=== PATIENT | female | born 1990 | race American Indian/Alaskan Native ===

== ENCOUNTER 2016-07-19 23:18 | Emergency (ER) | payer OTHER ==
[2016-07-19 23:30] VITALS: BP 137/93; RESP 16; TEMP 98.2; O2SAT 98
[2016-07-20 00:04] VITALS: PULSE 112
--- NOTE | 2016-07-20 00:40 | C.PDOC ---
History Of Present Illness 26 year old patient presents to the ED complaining of right 5th finger pain that began prior to arrival. Patient states the pain started after a heavy security door slammed onto her finger. Patient is a poor historian. She states she "wants a finger splint." Patient denies any numbness or weakness. Time Seen by Provider: 07/20/16 00:32 Chief Complaint (Nursing): Finger,Hand,&Wrist History Per: Patient History/Exam Limitations: no limitations Onset/Duration Of Symptoms: Mins (prior to arrival) Current Symptoms Are (Timing): Still Present Quality: "Pain" Severity: Mild Pain Scale Rating Of: 3 Exacerbating Factor(s): Movement Recent travel outside of the [place]: No Past Medical History Reviewed: Historical Data, Nursing Documentation, Vital Signs Vital Signs: Last Vital Signs Temp 98.2 F 07/19/16 23:27 Pulse 112 H 07/20/16 00:03 Resp 16 07/19/16 23:27 BP 137/93 H 07/19/16 23:27 Pulse Ox 98 07/20/16 02:08 - Medical History PMH: Bronchitis Family History: States: Unknown Family Hx - Social History Hx Alcohol Use: Yes Hx Substance Use: No - Immunization History Hx Tetanus Toxoid Vaccination: No Hx Influenza Vaccination: No Hx Pneumococcal Vaccination: No Review Of Systems Except As Marked, All Systems Reviewed And Found Negative. Musculoskeletal: Positive for: Hand Pain (right 5th finger) Neurological: Negative for: Weakness, Numbness Physical Exam - Physical Exam Appears: Non-toxic, No Acute Distress Skin: Warm, Dry Cardiovascular: Rhythm Regular Respiratory: Normal Breath Sounds, No Rales, No Rhonchi, No Wheezing Extremity: Normal ROM, Capillary Refill (<2 seconds), No Deformity, No Swelling , Other (right 5th finger: PIP at flexion. full ROM. no swelling. no ecchymosis. good strength and sensation. normal pulse. no subungal hematoma. no laceration. right forearm and hand are within normal limits. ) Neurological/Psych: Oriented x3, Normal Motor, Normal Sensation Gait: Steady ED Course And Treatment O2 Sat by Pulse Oximetry: 98 (room air) Pulse Ox Interpretation: Normal Progress Note: Plan: Motrin. Patient refuses x-ray. Aluminum splint was applied by the ED CP. Upon reassessment, patient is resting comfortably, and is in no acute distress. Patient was instructed to follow up with physician/ clinic for further evaluation. Return if symptoms worsen. Disposition Counseled Patient/Family Regarding: Diagnosis, Need For Followup, Rx Given - Disposition Disposition: HOME/ ROUTINE Disposition Time: 00:38 Condition: STABLE Additional Instructions: Please follow up with PMD or in clinic Take tylenol or advil for pain Return to ER if worse Prescriptions: Ibuprofen [Motrin] 600 mg PO Q6H #20 tab Instructions: Jammed Finger (ED) - Clinical Impression Clinical Impression: Finger injury, Finger contusion - PA / TOMOGRAPHIC TECH / Resident Statement MD/DO has reviewed & agrees with the documentation as recorded. - Scribe Statement The provider has reviewed the documentation as recorded by the Scribe Ene Finney All medical record entries made by the Scribe were at my direction and personally dictated by me. I have reviewed the chart and agree that the record accurately reflects my personal performance of the history, physical exam, medical decision making, and the department course for this patient. I have also personally directed, reviewed, and agree with the discharge instructions and disposition.
--- NOTE | 2016-08-21 10:47 | CARD ---
APPROVED REPORT EKG Measurement Heart [id number] <Conclusion> Sinus tachycardia Possible Left atrial enlargement Borderline ECG
== END 2016-07-20 01:00 | disposition home or self-care (01) ==
LOC: C.ER 23:18
DX: S60.051A Contusion of right little finger without damage to nail, initial encounter (principal); W22.8XXA Striking against or struck by other objects, initial encounter; Y93.9 Activity, unspecified; Y92.89 Other specified places as the place of occurrence of the external cause

== ENCOUNTER 2017-01-22 14:03 | Inpatient (IN) | payer MEDICAID, OTHER ==
[2017-01-22 15:11] LABS: RBC URINE 4 /hpf (0-3); URINE BILIRUBIN NEGATIVE (NEGATIVE); URINE BLOOD 2+ (NEGATIVE); URINE COLOR Yellow (YELLOW); URINE GLUCOSE (UA) NORMAL (Normal); URINE KETONE 1+ mg/dL (NEGATIVE); URINE LEUKOCYTE ESTERASE TRACE Leu/uL (Negative); URINE PROTEIN 2+ mg/dL (NEGATIVE); URINE UROBILINOGEN NORMAL mg/dL (0.2-1.0); WBC URINE 4 /hpf (0-5)
[2017-01-22 15:18] LABS: URINE BACTERIA FEW (<OCC)
--- NOTE | 2017-01-22 15:37 | RAD ---
Abdomen three views History: Constipation. Comparison: None available. Findings: Few mildly dilated loops of small bowel seen within the upper mid abdomen with a suggestion of questionable differential fluid levels which may represent a partial or developing small bowel obstruction. Some air seen within the visualized colon. Lung zabala are clear. Impression: Few mildly dilated loops of small bowel seen within the upper mid abdomen with a suggestion of questionable differential fluid levels which may represent a partial or developing small bowel obstruction. Clinical correlation. Some air seen within the visualized colon.
--- NOTE | 2017-01-22 15:54 | C.PDOC ---
History Of Present Illness <Shelley Francis - Last Filed: 01/22/17 18:51> <Marvin Banuelos - Last Filed: 01/22/17 20:06> 26 yo female w/o significant PMHx come in for evaluation of epigastric pain gradually developed for past few days, intermittent, localized, non-radiating. Pt also reports, (+) constipation for past 4 days. Took laxative yesterday with (+) BM, "today did not have BM again". Otherwise, pt denies fever, chills, headache, dizziness, weakness, neck apin, CP, SOB, dyspnea, diaphoresis, N/V, back pain, UTI sx. Ambulate to ED for evaluation, not in any apparent distress. (Shelley Francis) History Per: Patient <Shelley Francis - Last Filed: 01/22/17 18:51> <Marvin Banuelos P - Last Filed: 01/22/17 20:06> Time Seen by Provider: 01/22/17 14:22 Chief Complaint (Nursing): GI Problem Past Medical History Reviewed: Historical Data, Nursing Documentation, Vital Signs - Medical History PMH: Bronchitis Surgical History: No Surg Hx Family History: States: No Known Family Hx - Social History Hx Alcohol Use: Yes Hx Substance Use: No - Immunization History Hx Tetanus Toxoid Vaccination: No Hx Influenza Vaccination: No Hx Pneumococcal Vaccination: No <Shelley Francis - Last Filed: 01/22/17 18:51> Vital Signs: Last Vital Signs Temp 99.3 F 01/22/17 18:28 Pulse 117 H 01/22/17 18:28 Resp 18 01/22/17 18:28 BP 143/100 H 01/22/17 18:28 Pulse Ox 99 01/22/17 18:55 Review Of Systems Except As Marked, All Systems Reviewed And Found Negative. Constitutional: Negative for: Fever, Chills ENT: Negative for: Throat Pain Cardiovascular: Negative for: Chest Pain, Palpitations Respiratory: Negative for: Cough, Shortness of Breath Gastrointestinal: Positive for: Abdominal Pain, Constipation. Negative for: Nausea, Vomiting, Melena, Hematochezia, Hematemesis, Rectal Pain Genitourinary: Negative for: Dysuria, Frequency, Incontinence Musculoskeletal: Negative for: Neck Pain, Back Pain Skin: Negative for: Rash Neurological: Negative for: Weakness, Numbness, Altered Mental Status, Headache , Dizziness <MichellejanetShelley - Last Filed: 01/22/17 18:51> Physical Exam - Physical Exam Appears: Well, Non-toxic, No Acute Distress Skin: Normal Color, Warm, Dry, No Rash Head: Normacephalic Eye(s): bilateral: PERRL Nose: No Flaring, No Discharge Oral Mucosa: Moist Throat: No Erythema, No Exudate, No Drooling Neck: Supple Cardiovascular: Rhythm Regular Respiratory: No Decreased Breath Sounds, No Accessory Muscle Use, No Rhonchi, No Wheezing Gastrointestinal/Abdominal: Soft, Tenderness (mild epigastric), No Organomegaly , No Distention, No Guarding Back: No CVA Tenderness Extremity: Normal ROM, No Pedal Edema, No Deformity, No Swelling Neurological/Psych: Oriented x3, Normal Speech <DallinMadison ibrahimnika - Last Filed: 01/22/17 18:51> ED Course And Treatment - Laboratory Results Result Diagrams: 01/22/17 16:46 01/22/17 17:01 Lab Interpretation: Abnormal O2 Sat by Pulse Oximetry: 99 (RA) Pulse Ox Interpretation: Normal - Other Rad X-Ray - Obstructive Series X-Ray: Viewed By Me, Read By Radiologist Interpretation: Abdomen three views. History: Constipation. Comparison: None available. Findings: Few mildly dilated loops of small bowel seen within the upper mid abdomen with a suggestion of questionable differential fluid levels which may represent a partial or developing small bowel obstruction. Some air seen within the visualized colon. Lung zabala are clear. Impression: Few mildly dilated loops of small bowel seen within the upper mid abdomen with a suggestion of questionable differential fluid levels which may represent a partial or developing small bowel obstruction. Clinical correlation. Some air seen within the visualized colon. - CT Scan/US CT - Abd & Pelvis w/ PO Contrast Other Rad Studies (CT/US): Read By Radiologist, Radiology Report Reviewed Progress Note: Pt was OBS in ED for 4 hours and remained stable during the ED evaluation. After enema was given, pt admits was able to move bowel in ED. Imaging results review and discussed with ED attending. CT abd/plevis recommend at that time. AFebrile, hemodynamicaly stable. Non-toxic. Neck: SUpple. Lungs: CTA B/L, BS equal B/L. CVS: (+)S1S2, reg. Abd: benign, (-) guarding, (-) rebound, (-) localized tenderness. Back: (-) CVA tenderness. Neurologicaly intact. Blood work review and appears abnormal. CT abd/pelvis- pending. Case discussed with sign out to . <Shelley Francis - Last Filed: 01/22/17 18:51> - Laboratory Results Result Diagrams: 01/22/17 16:46 01/22/17 17:01 <Marvin Banuelos - Last Filed: 01/22/17 20:06> Medical Decision Making <Shelley Francis - Last Filed: 01/22/17 18:51> <Marvin Banuelos - Last Filed: 01/22/17 20:06> Medical Decision Makin disc results w pt who is resting quietly no distress. will admit for pancreatitis disc w Dr Pascual (Marvin Banuelos) Disposition - Disposition Disposition Time: 18:54 <Shelley Francis - Last Filed: 01/22/17 18:51> <Marvin Banuelos - Last Filed: 01/22/17 20:06> - Disposition Condition: STABLE Forms: [facility] (German) - Clinical Impression Clinical Impression: Abdominal pain, Elevated lipase Physician Patient Turnover Patient Signed Over To: Marvin Banuelos Handoff Comments: CT abd/pelvis, amylase, re-eval, dispo <Shelley Francis - Last Filed: 01/22/17 18:51>
[2017-01-22] MEDS ORDERED: Iohexol 240 (50 ml) ONE (16:25)
[2017-01-22 17:01] LABS: BASO % 0.3 % (0.0-2.0); EOS # 0.2 K/uL (0.0-0.7); EOS % 1.8 % (0.0-4.0); HEMATOCRIT 42.8 % (34.0-47.0); LYMPH # 0.8 K/uL (1.0-4.3); LYMPH % 9.2 % (20.0-40.0); MEAN CELL VOLUME 100.5 fL (81.0-99.0); MEAN CORPUSCULAR HEMOGLOBIN 34.1 pg (27.0-31.0); MEAN PLATELET VOLUME 8.1 fL (7.2-11.7); MONO # 0.5 K/uL (0.0-0.8); MONO % 5.2 % (0.0-10.0); PLATELET COUNT 140 K/uL (130-400); WHITE BLOOD COUNT 9.1 K/uL (4.8-10.8)
[2017-01-22 17:21] LABS: BILIRUBIN,TOTAL 1.8 mg/dL (0.2-1.3); CALCIUM 9.1 mg/dl (8.6-10.4); GFR AFRICAN-AMERICAN > 60; GLUCOSE,RANDOM 91 mg/dL (65-105)
[2017-01-22 17:26] LABS: ALB/GLOB RATIO 1.3 (1.0-2.1); ALKALINE PHOSPHATASE 89 U/L (38-126); ALT/SGPT 56 U/L (9-52); AST/SGOT 62 U/L (14-36); BLOOD UREA NITROGEN 6 mg/dL (7-17); CARBON DIOXIDE 26 mmol/L (22-30); CHLORIDE 95 mmol/L (98-107); SODIUM 133 mmol/L (132-148); TOTAL PROTEIN 8.7 g/dL (6.3-8.3)
[2017-01-22 18:50] LABS: NEUTROPHIL 84 % (50-75); TOTAL CELLS COUNTED 100
[2017-01-22 18:51] LABS: LARGE PLATELETS PRESENT
--- NOTE | 2017-01-22 19:01 | CT ---
EXAM: CT Abdomen and Pelvis With Intravenous Contrast EXAM DATE/TIME: Exam ordered 01/22/2017 5:07 PM CLINICAL HISTORY: 26 years old, female; Pain; Abdominal pain; Additional info: Abd. Pain, constipation, abnoraml xray findings TECHNIQUE: Axial computed tomography images of the abdomen and pelvis with intravenous contrast. All CT scans at this facility use one or more dose reduction techniques, viz.: automated exposure control; ma/kV adjustment per patient size (including targeted exams where dose is matched to indication; i.e. head); or iterative reconstruction technique. Coronal and sagittal reformatted images were created and reviewed. CONTRAST: 240 mL of 240 administered intravenously. COMPARISON: No relevant prior studies available. FINDINGS: Lower thorax: A contrast air level in the distal esophagus suggests gastroesophageal reflux. ABDOMEN: Liver: The liver is low in density. Gallbladder and bile ducts: Unremarkable. No calcified stones. No ductal dilation. Pancreas: Unremarkable. No mass. No ductal dilation. Spleen: Unremarkable. No splenomegaly. Adrenals: Unremarkable. No mass. Kidneys and ureters: Unremarkable. No solid mass. No hydronephrosis. Stomach and bowel: No abnormally dilated bowel loops are seen.. No mucosal thickening. Appendix: No findings to suggest acute appendicitis. PELVIS: Bladder: Unremarkable. No mass. Reproductive: Unremarkable as visualized. ABDOMEN and PELVIS: Intraperitoneal space: Unremarkable. No free air. No significant fluid collection. Bones/joints: No acute fracture. No dislocation. Soft tissues: Mild inflammatory changes are noted within the fat adjacent to the pancreatic head and second portion of the duodenum. Vasculature: Unremarkable. No abdominal aortic aneurysm. Lymph nodes: Unremarkable. No enlarged lymph nodes. IMPRESSION: 1. Mild inflammatory changes are noted within the fat surrounding the second portion of the duodenum and the adjacent pancreatic head. Differential diagnostic considerations include pancreatitis. Duodenitis with penetrating ulcer and secondary pancreatitis might also be considered. 2. Hepatic steatosis. 3. Contrast air level in the distal esophagus suggests gastroesophageal reflux. 4. No abnormally dilated small bowel loops to suggest obstruction or ileus.
--- NOTE | 2017-01-22 20:04 | US ---
EXAM: US Abdomen Limited, Right Upper Quadrant EXAM DATE/TIME: Exam ordered 01/22/2017 7:03 PM CLINICAL HISTORY: 26 years old, female; Signs and symptoms; Other: Evaluate for common duct stone; Additional info: Eval for common duct stone TECHNIQUE: Real-time ultrasound of the right upper quadrant with image documentation. COMPARISON: CT - ABD PELVIS PO CONTRAST ONLY 2017-01-22 18:07 FINDINGS: Liver: The liver is mildly increased in echotexture measuring 16 cm in craniocaudal span. There is normal blood flow to right and the main portal vein. Normal triphasic flow is noted in the right hepatic vein. Gallbladder: The gallbladder is fluid filled. No gallstones are seen. Common bile duct: The common bile duct measures 5 mm. No stones. No dilation. Pancreas: Not well-seen due to bowel gas Right kidney: The right kidney measures 11.2 x 4.4 x 5.1 cm. No stones. No hydronephrosis. Aorta: There is no evidence of proximal abdominal aortic aneurysm. The mid and distal aorta are not seen due to bowel gas. IMPRESSION: 1. No ductal dilatation. No gallstones. 2. Echogenic liver suggests hepatic steatosis
[2017-01-22] MEDS ORDERED: Sodium Chloride 0.9% 1,000 ML IV SCH (20:15)
[2017-01-22] MEDS ORDERED: Sodium Chloride 0.9% 1,000 ML ONE (20:21)
[2017-01-23 00:12] VITALS: RESP 20
[2017-01-23] MEDS: Lactated Ringer's 1,000 ML IV SCH ×4 (08:38→23:04)
[2017-01-23 08:40] LABS: AMYLASE 88 U/L (30-110)
[2017-01-23] MEDS: HYDROmorphone 0.5 mg/0.5 ml ISec IVP PRN ×3 (09:06→22:59)
--- NOTE | 2017-01-23 11:31 | CP.PCM.CON ---
<Rosa Dempsey - Last Filed: 01/23/17 11:38> History of Present Illness - History of Present Illness History of Present Illness: GI Fellow PGY4 Consult Note This is a 26yF with no reported pmhx presenting for acute epigastric abdominal pain radiating to back associated with nausea and vomiting for 2 days. Pt reports she was experiencing sharp stabbing pain and did not notice any triggers and not associated with food. Pt reports she had the same type of pain for the first time 2weeks which was much more severe but resolved on its own with OTC pain medication. Pt denies any hx of gallbladder pathology or elevated cholesterol. Pt does drink 1 bottle of wine every day since September 2016. In the ER pt was found to have elevated LFTs and concern for pancreatitis on imaging. No prior hx of pancreatitis. Pt denies any prior EGD/colonoscopy. ROS: A 12pt ROS was negative except as above. PmHx: None PsHX: None FHx: No family hx of pancreatic disease SHx: smokes cigarets, alcohol 1 bottle of wine daily for 5 months Past Patient History - Infectious Disease Hx of Infectious Diseases: None - Past Medical History & Family History Past Medical History?: Yes - Past Social History Smoking Status: Never Smoked - PULMONARY Hx Bronchitis: Yes - HEMATOLOGICAL/ONCOLOGICAL Hx Blood Transfusions: Yes (x2) - MUSCULOSKELETAL/RHEUMATOLOGICAL Hx Falls: No - PSYCHIATRIC Hx Substance Use: No - SURGICAL HISTORY Hx Surgeries: No - ANESTHESIA Hx Anesthesia: No Meds Allergies/Adverse Reactions: Allergies Allergy/AdvReac Type Severity Reaction Status Date / Time Penicillins Allergy Verified 01/22/17 14:05 shellfish derived Allergy Verified 01/22/17 14:05 - Medications Medications: Current Medications Enoxaparin Sodium (Lovenox) 40 mg SC DAILY [facility] Hydromorphone HCl (Dilaudid) 0.25 mg IVP Q4H PRN PRN Reason: Pain, Mild (1-3) Last Admin: 01/23/17 09:06 Dose: 0.25 mg Lactated Ringer's (Lactated Ringer's) 1,000 mls @ 200 mls/hr IV .Q5H RILEY Last Admin: 01/23/17 08:38 Dose: 200 mls/hr Pantoprazole Sodium (Protonix Inj) 40 mg IVP DAILY [facility] Last Admin: 01/23/17 09:06 Dose: 40 mg Pneumococcal Polyvalent Vaccine (Pneumovax 23 Vaccine) 0.5 ml IM .ONCE ONE Stop: 01/24/17 10:01 Physical Exam - Constitutional Appears: Non-toxic, No Acute Distress - Head Exam Head Exam: ATRAUMATIC, NORMAL INSPECTION, NORMOCEPHALIC - Eye Exam Eye Exam: EOMI, Normal appearance, PERRL Pupil Exam: NORMAL ACCOMODATION, PERRL - ENT Exam ENT Exam: Mucous Membranes Moist, Normal Exam - Neck Exam Neck exam: Positive for: Normal Inspection - Respiratory Exam Respiratory Exam: Clear to Auscultation Bilateral, NORMAL BREATHING PATTERN - Cardiovascular Exam Cardiovascular Exam: REGULAR RHYTHM - GI/Abdominal Exam GI & Abdominal Exam: Normal Bowel Sounds, Tenderness. absent: Distended, Guarding, Organomegaly, Rigid - Rectal Exam Rectal Exam: Deferred - Extremities Exam Extremities exam: Positive for: normal inspection - Back Exam Back exam: NORMAL INSPECTION - Neurological Exam Neurological exam: Alert, Oriented x3 - Psychiatric Exam Psychiatric exam: Normal Affect, Normal Mood - Skin Skin Exam: Dry, Intact, Normal Color, Warm Results - Vital Signs Recent Vital Signs: Last Vital Signs Temp 98.6 F 01/23/17 00:11 Pulse 101 H 01/23/17 00:11 Resp 20 01/23/17 00:11 BP 140/89 01/23/17 00:11 Pulse Ox 97 01/23/17 00:11 - Labs Result Diagrams: 01/22/17 16:46 01/22/17 17:01 Labs: Laboratory Results - last 24 hr 01/22/17 01/22/17 01/22/17 14:59 16:46 17:01 WBC 9.1 RBC 4.26 Hgb 14.6 Hct 42.8 MCV 100.5 H MCH 34.1 H MCHC 34.0 RDW 16.0 H Plt Count 140 MPV 8.1 Neut % (Auto) 83.5 H Lymph % (Auto) 9.2 L Canadian % (Auto) 5.2 Eos % (Auto) 1.8 Baso % (Auto) 0.3 Neut # 7.6 H Lymph # 0.8 L Canadian # 0.5 Eos # 0.2 Baso # 0.0 Neutrophils % (Manual) 84 H Lymphocytes % (Manual) 13 L Monocytes % (Manual) 3 Platelet Estimate Slightly decreased L Large Platelets Present Sodium 133 Potassium 4.0 Chloride 95 L Carbon Dioxide 26 Anion Gap 17 BUN 6 L Creatinine 0.5 L Est GFR ( Amer) > 60 Est GFR (Non-Af Amer) > 60 Random Glucose 91 Calcium 9.1 Total Bilirubin 1.8 H AST 62 H ALT 56 H Alkaline Phosphatase 89 Total Protein 8.7 H Albumin 4.9 Globulin 3.8 Albumin/Globulin Ratio 1.3 Amylase Lipase 507 H Urine Color Yellow Urine Clarity Hazy Urine pH 5.0 Ur Specific Weott 1.020 Urine Protein 2+ H Urine Glucose (UA) Normal Urine Ketones 1+ H Urine Blood 2+ H Urine Nitrate Negative Urine Bilirubin Negative Urine Urobilinogen Normal Ur Leukocyte Esterase Trace Urine WBC (Auto) 4 Urine RBC (Auto) 4 H Ur Squamous Epith Cells 11 H Urine Bacteria Few H Urine HCG, Qual Negative 01/22/17 01/23/17 18:19 08:23 WBC RBC Hgb Hct MCV MCH MCHC RDW Plt Count MPV Neut % (Auto) Lymph % (Auto) Canadian % (Auto) Eos % (Auto) Baso % (Auto) Neut # Lymph # Canadian # Eos # Baso # Neutrophils % (Manual) Lymphocytes % (Manual) Monocytes % (Manual) Platelet Estimate Large Platelets Sodium Potassium Chloride Carbon Dioxide Anion Gap BUN Creatinine Est GFR ( Amer) Est GFR (Non-Af Amer) Random Glucose Calcium Total Bilirubin AST ALT Alkaline Phosphatase Total Protein Albumin Globulin Albumin/Globulin Ratio Amylase 99 88 Lipase 589 H Urine Color Urine Clarity Urine pH Ur Specific Weott Urine Protein Urine Glucose (UA) Urine Ketones Urine Blood Urine Nitrate Urine Bilirubin Urine Urobilinogen Ur Leukocyte Esterase Urine WBC (Auto) Urine RBC (Auto) Ur Squamous Epith Cells Urine Bacteria Urine HCG, Qual Assessment & Plan - Assessment and Plan (Free Text) Assessment: This is a 26yF presenting with acute onset of epigastric pain radiating to back associated with nausea and vomiting. 1. Alcoholic pancreatitis 2. GERD 3. Transamintis Plan: -Continue supportive care with aggressive IVF hydration LR@200cc/hr -Monitor BUN/Hct, CMP/CBC ordered for am -Pancreatitis likely from alcohol use with elevated LFTs, imaging negative for gallstones, will order lipid profile -Diagnosed based on 2/3 criteria-abdominal pain and imaging with mild fat stranding around pancreas, lipase is not 3x upper limit of normal -Advance to clear liquid diet -Conitnue PPI daily 30minutes prior to breakfast for possible underlying GERD vs PUD causing her symptoms -Continue pain control and antiemetic -Will continue to follow pt closely <Shad Motta - Last Filed: 01/23/17 12:05> Meds - Medications Medications: Current Medications Enoxaparin Sodium (Lovenox) 40 mg SC DAILY [facility] Hydromorphone HCl (Dilaudid) 0.25 mg IVP Q4H PRN PRN Reason: Pain, Mild (1-3) Last Admin: 01/23/17 09:06 Dose: 0.25 mg Lactated Ringer's (Lactated Ringer's) 1,000 mls @ 200 mls/hr IV .Q5H RILEY Last Admin: 01/23/17 08:38 Dose: 200 mls/hr Pantoprazole Sodium (Protonix Inj) 40 mg IVP DAILY [facility] Last Admin: 01/23/17 09:06 Dose: 40 mg Pneumococcal Polyvalent Vaccine (Pneumovax 23 Vaccine) 0.5 ml IM .ONCE ONE Stop: 01/24/17 10:01 Results - Vital Signs Recent Vital Signs: Last Vital Signs Temp 98.6 F 01/23/17 00:11 Pulse 101 H 01/23/17 00:11 Resp 20 01/23/17 00:11 BP 140/89 01/23/17 00:11 Pulse Ox 97 01/23/17 00:11 - Labs Result Diagrams: 01/22/17 16:46 01/22/17 17:01 Labs: Laboratory Results - last 24 hr 01/22/17 01/22/17 01/22/17 14:59 16:46 17:01 WBC 9.1 RBC 4.26 Hgb 14.6 Hct 42.8 MCV 100.5 H MCH 34.1 H MCHC 34.0 RDW 16.0 H Plt Count 140 MPV 8.1 Neut % (Auto) 83.5 H Lymph % (Auto) 9.2 L Canadian % (Auto) 5.2 Eos % (Auto) 1.8 Baso % (Auto) 0.3 Neut # 7.6 H Lymph # 0.8 L Canadian # 0.5 Eos # 0.2 Baso # 0.0 Neutrophils % (Manual) 84 H Lymphocytes % (Manual) 13 L Monocytes % (Manual) 3 Platelet Estimate Slightly decreased L Large Platelets Present Sodium 133 Potassium 4.0 Chloride 95 L Carbon Dioxide 26 Anion Gap 17 BUN 6 L Creatinine 0.5 L Est GFR ( Amer) > 60 Est GFR (Non-Af Amer) > 60 Random Glucose 91 Calcium 9.1 Total Bilirubin 1.8 H AST 62 H ALT 56 H Alkaline Phosphatase 89 Total Protein 8.7 H Albumin 4.9 Globulin 3.8 Albumin/Globulin Ratio 1.3 Amylase Lipase 507 H Urine Color Yellow Urine Clarity Hazy Urine pH 5.0 Ur Specific Weott 1.020 Urine Protein 2+ H Urine Glucose (UA) Normal Urine Ketones 1+ H Urine Blood 2+ H Urine Nitrate Negative Urine Bilirubin Negative Urine Urobilinogen Normal Ur Leukocyte Esterase Trace Urine WBC (Auto) 4 Urine RBC (Auto) 4 H Ur Squamous Epith Cells 11 H Urine Bacteria Few H Urine HCG, Qual Negative 01/22/17 01/23/17 18:19 08:23 WBC RBC Hgb Hct MCV MCH MCHC RDW Plt Count MPV Neut % (Auto) Lymph % (Auto) Canadian % (Auto) Eos % (Auto) Baso % (Auto) Neut # Lymph # Canadian # Eos # Baso # Neutrophils % (Manual) Lymphocytes % (Manual) Monocytes % (Manual) Platelet Estimate Large Platelets Sodium Potassium Chloride Carbon Dioxide Anion Gap BUN Creatinine Est GFR ( Amer) Est GFR (Non-Af Amer) Random Glucose Calcium Total Bilirubin AST ALT Alkaline Phosphatase Total Protein Albumin Globulin Albumin/Globulin Ratio Amylase 99 88 Lipase 589 H Urine Color Urine Clarity Urine pH Ur Specific Weott Urine Protein Urine Glucose (UA) Urine Ketones Urine Blood Urine Nitrate Urine Bilirubin Urine Urobilinogen Ur Leukocyte Esterase Urine WBC (Auto) Urine RBC (Auto) Ur Squamous Epith Cells Urine Bacteria Urine HCG, Qual Attending/Attestation - Attestation I have personally seen and examined this patient.: Yes I have fully participated in the care of the patient.: Yes I have reviewed all pertinent clinical information: Yes Notes (Text): 01/23/17 12:02 26 year old female with recent onset of etoh abuse presenting with abdominal pain. 1. Acute pancreatitis 2. Elevated LFTs 4. Fatty liver Plan: -lipase only mildly elevated, but pain really started about two weeks ago and she didn't get evaluated at that time and CT has evidence of pancreatitis -advised patient that etoh may be causing both pancreatitis and elevated LFTs -she has fatty liver on US -check hepatitis serologies -IV hydration -liquid diet and advance as tolerated -start PPI as well for possible gerd/dyspepsia
[2017-01-23] MEDS: Enoxaparin 40 mg Syringe SC SCH (13:40)
--- NOTE | 2017-01-23 23:09 | HP ---
CHIEF COMPLAINT: Epigastric pain. HISTORY OF PRESENT ILLNESS: Ms. Smith is a 26-year-old female without any significant past medical history came for evaluation of epigastric pain gradually developed for the past two days, intermittent, localized, and nonradiating. The patient reports positive constipation for four days, took laxative yesterday and had bowel movement. Today, did not have bowel movement. Otherwise, the patient denies fever, chills, headache, dizziness, weakness, neck pain, chest pain, shortness of breath, dyspnea, or diaphoresis. No nausea or vomiting. No back pain. PAST MEDICAL HISTORY: History of alcohol abuse. Otherwise, nonsignificant. FAMILY HISTORY: Father and mother, noncontributory. HABITS: Alcohol, yes. Substance abuse, no. Smoking, questionable. REVIEW OF SYSTEMS: The patient seen and examined at the bedside. Grandmother, father, and boyfriend were at the bedside. Looking comfortable. Still complaining about abdominal pain before getting pain medication, but after pain medication, no more abdominal pain. No fever, no chills. No headache, no dizziness. No shortness of breath. PHYSICAL EXAMINATION: VITAL SIGNS: Temperature 97.9, pulse 90, blood pressure 132/91, and respiratory rate 20. HEENT: Head normocephalic, atraumatic. Eyes: PERRLA. Extraocular movements intact. Conjunctivae clear. Nose patent. Mucous membranes are moist. NECK: Supple. No carotid bruits, JVD, or thyromegaly. CHEST: Bilaterally symmetrical. HEART: S1 and S2 positive. LUNGS: Clear to auscultation. ABDOMEN: Soft. Bowel sounds are positive. No organomegaly. EXTREMITIES: No edema. No cyanosis. NEUROLOGIC: The patient is awake and alert. Moving all four extremities without focal deficits. LABORATORY DATA: White blood cells 9.1, hemoglobin 14.6, hematocrit 42.8, and platelets 140. Sodium 133, potassium 4.0, BUN 6, creatinine 0.5, AST 62, ALT 52, and lipase 507, repeat is 589. ASSESSMENT AND PLAN: Ms. Smith is a 26-year-old lady with hypochloremia, abnormal liver function tests, hyperproteinemia, proteinuria, ketonuria, and hematuria, admitted with epigastric pain. History of ethanol abuse, has acute pancreatitis, fatty liver, lipase only mildly elevated, but pain really started about two weeks ago and she did not get evaluation at that time, and CT has evidence of pancreatitis. Urged to quit drinking, causing both pancreatitis and abnormal liver function test. Fatty liver on ultrasound. We will check hepatitis serology. IV hydration. Liquid diet advanced as tolerated. Started PPI. Has gastroesophageal reflux disease and dyspepsia. PPI will help for that. Reviewed ultrasound of the gallbladder. No septal dilatation. No gallstones. Echogenic liver suggesting hepatic steatosis. CAT scan of the abdomen and pelvis done. Mild inflammatory changes are noted within the fat surrounding the second portion of the duodenum and the adjacent pancreatic head. The differential diagnoses consistent and include pancreatitis and duodenitis with penetrating ulcers, and secondary pancreatitis might also be considered. Hepatic steatosis, contrast level in the distal esophagus suggestive of gastroesophageal reflux disease. She was seen by Dr. Shad Motta, line patroller. Discussion was done with the patient's family, all questions answered. Giving Dilaudid for pain and hydration, and we will follow up. Nichole Pascual MD
[2017-01-24] MEDS: Lactated Ringer's 1,000 ML IV SCH ×2 (03:45→10:47)
[2017-01-24 07:38] LABS: EOS # 0.2 K/uL (0.0-0.7); LYMPH # 1.5 K/uL (1.0-4.3); MONO # 0.4 K/uL (0.0-0.8); RED CELL DISTRIBUTION WIDTH 15.5 % (11.5-14.5)
[2017-01-24 07:41] LABS: AMYLASE 94 U/L (30-110)
[2017-01-24 07:43] LABS: BASO % 0.3 % (0.0-2.0); EOS % 3.5 % (0.0-4.0); HEMATOCRIT 35.2 % (34.0-47.0); LYMPH % 24.3 % (20.0-40.0); MEAN CELL VOLUME 100.3 fL (81.0-99.0); MEAN CORPUSCULAR HEMOGLOBIN 34.6 pg (27.0-31.0); MEAN CORPUSCULAR HGB CONC 34.5 g/dL (33.0-37.0); MEAN PLATELET VOLUME 8.3 fL (7.2-11.7); MONO % 7.1 % (0.0-10.0); WHITE BLOOD COUNT 6.1 K/uL (4.8-10.8)
[2017-01-24] MEDS: HYDROmorphone 0.5 mg/0.5 ml ISec IVP PRN (07:43)
[2017-01-24 08:05] VITALS: PULSE 79; TEMP 98; O2SAT 99
[2017-01-24 08:16] LABS: BLOOD UREA NITROGEN 3 mg/dL (7-17); CALCIUM 8.9 mg/dl (8.6-10.4); CARBON DIOXIDE 29 mmol/L (22-30); CHLORIDE 98 mmol/L (98-107); CHOLESTEROL 203 mg/dL (0-199); GFR AFRICAN-AMERICAN > 60; GLUCOSE,RANDOM 92 mg/dL (65-105); SODIUM 135 mmol/L (132-148); TOTAL PROTEIN 6.3 g/dL (6.3-8.3)
[2017-01-24 08:17] LABS: ALB/GLOB RATIO 1.4 (1.0-2.1); ALKALINE PHOSPHATASE 65 U/L (38-126); ALT/SGPT 45 U/L (9-52); AST/SGOT 43 U/L (14-36)
--- NOTE | 2017-01-24 09:26 | CP.PCM.PN ---
<Sameera Astudillo - Last Filed: 01/24/17 10:35> Subjective - Date & Time of Evaluation Date of Evaluation: 01/24/17 Time of Evaluation: 09:23 - Subjective Subjective: Sameera Astudillo, PGY1, GI Progress Note for Dr Fair: Pt seen and examined at bedside. No acute events overnight. Pt tolerating her liquid diet well. Verbalizes good appetite and minimal abdominal pain. Denies nausea and vomiting, fever, chills, diarrhea, constipation. Objective - Vital Signs/Intake and Output Vital Signs (last 24 hours): Temp Pulse Resp BP Pulse Ox 98.0 F 79 20 137/92 H 99 01/24/17 08:00 01/24/17 08:00 01/24/17 08:00 01/24/17 00:12 01/24/17 08:00 Intake and Output: 01/24/17 01/24/17 06:59 18:59 Intake Total 3400 Balance 3400 - Medications Medications: Current Medications Enoxaparin Sodium (Lovenox) 40 mg SC DAILY [facility] Last Admin: 01/23/17 13:40 Dose: Not Given Hydromorphone HCl (Dilaudid) 0.25 mg IVP Q4H PRN PRN Reason: Pain, Mild (1-3) Last Admin: 01/24/17 07:43 Dose: 0.25 mg Lactated Ringer's (Lactated Ringer's) 1,000 mls @ 200 mls/hr IV .Q5H [facility] Last Admin: 01/24/17 03:45 Dose: 200 mls/hr Pantoprazole Sodium (Protonix Inj) 40 mg IVP DAILY [facility] Last Admin: 01/23/17 09:06 Dose: 40 mg Pneumococcal Polyvalent Vaccine (Pneumovax 23 Vaccine) 0.5 ml IM .ONCE ONE Stop: 01/24/17 10:01 - Labs Labs: 01/24/17 07:14 01/24/17 07:14 PT 10.9 SECONDS (9.7-12.2) 01/24/17 07:14 INR 1.0 01/24/17 07:14 - Constitutional Appears: Well, No Acute Distress - Head Exam Head Exam: ATRAUMATIC, NORMOCEPHALIC - Eye Exam Eye Exam: EOMI. absent: Conjunctival injection Pupil Exam: PERRL - ENT Exam ENT Exam: Mucous Membranes Moist - Respiratory Exam Respiratory Exam: Clear to Ausculation Bilateral - Cardiovascular Exam Cardiovascular Exam: RRR, +S1, +S2 - GI/Abdominal Exam GI & Abdominal Exam: Soft, Tenderness, Normal Bowel Sounds. absent: Distended Additional comments: Mild TTP in RLQ - Extremities Exam Extremities Exam: absent: Pedal Edema - Neurological Exam Neurological Exam: Alert, Awake, Oriented x3 - Psychiatric Exam Psychiatric exam: Normal Mood - Skin Skin Exam: Dry, Warm Assessment and Plan - Assessment and Plan (Free Text) Assessment: 26 years old male with alcohol abuse, presents for epigastric pain and elevated LFTs: Plan: - Epigastric pain 2/2 likely acute pancreatitis 2/2 likely alcohol abuse. - No gallstones seen on abdominal US. - TG 188, cholesterol 203, LDL 146 - Hepatitis studies pending. - CT abdomen mild fat stranding around pancreas - Advance diet. Pt tolerating solid foods. - Can discharge. Can continue with PPI. Pt counseled on avoiding fatty foods and reducing alcohol intake. - See and discussed patient with GI fellow and attending, Dr Fair. <Marv BURKS,[facility] - Last Filed: 01/24/17 18:53> Objective - Vital Signs/Intake and Output Vital Signs (last 24 hours): Temp Pulse Resp BP Pulse Ox 98.0 F 79 20 121/86 99 01/24/17 08:00 01/24/17 08:00 01/24/17 08:00 01/24/17 10:00 01/24/17 08:00 Intake and Output: 01/24/17 01/24/17 06:59 18:59 Intake Total 3400 Balance 3400 - Labs Labs: 01/24/17 07:14 01/24/17 07:14 PT 10.9 SECONDS (9.7-12.2) 01/24/17 07:14 INR 1.0 01/24/17 07:14 Attending/Attestation - Attestation I have personally seen and examined this patient.: Yes I have fully participated in the care of the patient.: Yes I have reviewed all pertinent clinical information, including history, physical exam and plan: Yes Notes (Text): 01/24/17 18:50 Patient seen with GI fellow on rounds this am. This is a 26 years old male with alcohol abuse, presents for epigastric pain radiating to the back and CT evidence of acute uncomplicated interstitial pancreatitis. No gallstones or elevated TG. Able to advance diet. Alcohol cessation. GI/DVT prophylaxis Plan:
[2017-01-24] MEDS ORDERED: Pneumococcal 23-Valent Vaccine IM ONE (10:00)
[2017-01-24] MEDS ORDERED: Influenza Vaccine 60 mcg/0.5 mL SYR (4YR UP) IM ONE (10:00)
[2017-01-24] MEDS: Enoxaparin 40 mg Syringe SC SCH (10:49)
[2017-01-24 11:16] VITALS: BP 121/86
== END 2017-01-24 12:48 | disposition left against medical advice (07) | DRG 204 ==
LOC: C.ER 14:03 → C.9E 20:06 → C.3T 20:39
PROVIDERS: ADMIT Internal Medicine; ATTEND Internal Medicine
DX: K85.90 Acute pancreatitis without necrosis or infection, unspecified (principal); E87.8 Other disorders of electrolyte and fluid balance, not elsewhere classified; F10.10 Alcohol abuse, uncomplicated; K59.00 Constipation, unspecified; K21.9 Gastro-esophageal reflux disease without esophagitis

== ENCOUNTER 2017-07-03 13:49 | Emergency (ER) | payer MEDICAID ==
[2017-07-03 13:49] VITALS: BMI 29.9
[2017-07-03] MEDS ORDERED: Sodium Chloride 0.9% 1,000 ML IV ONE (14:11)
[2017-07-03 14:49] LABS: BASO % 0.6 % (0.0-2.0); EOS # 0.4 K/uL (0.0-0.7); EOS % 5.5 % (0.0-4.0); HEMOGLOBIN 12.6 g/dL (11.0-16.0); LYMPH # 1.8 K/uL (1.0-4.3); LYMPH % 26.3 % (20.0-40.0); MEAN CELL VOLUME 93.3 fL (81.0-99.0); MEAN CORPUSCULAR HEMOGLOBIN 32.7 pg (27.0-31.0); MEAN PLATELET VOLUME 7.8 fL (7.2-11.7); MONO # 0.5 K/uL (0.0-0.8); MONO % 6.7 % (0.0-10.0); NEUT # 4.1 K/uL (1.8-7.0); NEUT % 60.9 % (50.0-75.0); NRBC % 0.1 % (0.0-2.0); RBC 3.87 Mil/uL (3.80-5.20); RED CELL DISTRIBUTION WIDTH 14.1 % (11.5-14.5); WHITE BLOOD COUNT 6.8 K/uL (4.8-10.8)
[2017-07-03 14:52] LABS: HCG,QUALITATIVE URINE NEGATIVE (NEGATIVE)
[2017-07-03 14:55] LABS: SQUAMOUS EPITHIAL < 1 /hpf (0-5); URINE BACTERIA FEW (<OCC); URINE BILIRUBIN NEGATIVE (NEGATIVE); URINE BLOOD NEGATIVE (NEGATIVE); URINE CLARITY Hazy (Clear); URINE COLOR Yellow (YELLOW); URINE GLUCOSE (UA) NORMAL (Normal); URINE LEUKOCYTE ESTERASE NEG Leu/uL (Negative); URINE PROTEIN NEGATIVE (NEGATIVE); URINE UROBILINOGEN NORMAL mg/dL (0.2-1.0)
[2017-07-03 15:01] LABS: INR 1.1; PROTHROMBIN TIME 12.5 SECONDS (9.7-12.2)
[2017-07-03 15:03] LABS: ALB/GLOB RATIO 1.2 (1.0-2.1); ALBUMIN 4.1 g/dL (3.5-5.0); ALT/SGPT 39 U/L (9-52); AST/SGOT 35 U/L (14-36); BLOOD UREA NITROGEN 9 mg/dL (7-17); GFR AFRICAN-AMERICAN > 60; GFR NON-AFRICAN AMERICAN > 60
--- NOTE | 2017-07-03 15:13 | C.PDOC ---
History Of Present Illness 26yo female, presents to ED with complaitns of dysfunctional uterine bleeding for the past month. Usually 7 pads/day. Patient states she has the history of same which required blood transfusion in 2009. She reports good compliant with her iron supplements as well. She denies any abdominal pain, vomiting, diarrhea , and offers no other medical complaints. Time Seen by Provider: 07/03/17 14:06 Chief Complaint (Nursing): Female Genitourinary History Per: Patient History/Exam Limitations: no limitations Onset/Duration Of Symptoms: Persistent Current Symptoms Are (Timing): Still Present Abnormal Vaginal Bleeding: Yes Past Medical History Reviewed: Historical Data, Nursing Documentation, Vital Signs Vital Signs: Last Vital Signs Temp 97.9 F 07/03/17 13:55 Pulse 84 07/03/17 13:55 Resp 20 07/03/17 13:55 BP 136/90 07/03/17 13:55 Pulse Ox 96 07/03/17 15:13 - Medical History PMH: Anemia, Bronchitis Denies: Chronic Kidney Disease Surgical History: No Surg Hx Family History: States: No Known Family Hx, Unknown Family Hx - Social History Hx Alcohol Use: Yes Hx Substance Use: No - Immunization History Hx Tetanus Toxoid Vaccination: Yes Hx Influenza Vaccination: Yes Hx Pneumococcal Vaccination: Yes Review Of Systems Except As Marked, All Systems Reviewed And Found Negative. Constitutional: Negative for: Fever, Chills Gastrointestinal: Negative for: Vomiting, Abdominal Pain, Diarrhea Genitourinary: Positive for: Vaginal Bleeding Physical Exam - Physical Exam Appears: Non-toxic, No Acute Distress Skin: Warm, Dry, Pale Head: Atraumatic, Normacephalic Eye(s): bilateral: Normal Inspection, PERRL Neck: Normal ROM, Supple Chest: Symmetrical Cardiovascular: Rhythm Regular Respiratory: Normal Breath Sounds, No Wheezing Gastrointestinal/Abdominal: Normal Exam, Soft, No Tenderness Back: Normal Inspection Extremity: Normal ROM, No Pedal Edema Neurological/Psych: Oriented x3 ED Course And Treatment - Laboratory Results Result Diagrams: 07/03/17 14:43 07/03/17 14:43 Lab Interpretation: Normal (ua neg.) Urine POC: Negative O2 Sat by Pulse Oximetry: 96 (RA) Pulse Ox Interpretation: Normal Reevaluation Time: 16:53 Reassessment Condition: Unchanged Medical Decision Making Medical Decision Making: Impression: Vaginal bleeding x 1 month Plan: -- Labs -- IV Fluids -- US Transvaginal chronic DUB NO now. NO signficant anemia (HGB 13) ok to f/u with outpatient OBGYN Disposition Doctor Will See Patient In The: Office Counseled Patient/Family Regarding: Studies Performed, Diagnosis - Disposition Disposition: HOME/ ROUTINE Disposition Time: 16:54 Condition: GOOD Forms: [employer] ([place]) - Clinical Impression Clinical Impression: Dysfunctional uterine bleeding - Scribe Statement The provider has reviewed the documentation as recorded by the Scribe (Marlena Guillermo) Provider Attestation: All medical record entries made by the Scribe were at my direction and personally dictated by me. I have reviewed the chart and agree that the record accurately reflects my personal performance of the history, physical exam, medical decision making, and the department course for this patient. I have also personally directed, reviewed, and agree with the discharge instructions and disposition.
--- NOTE | 2017-07-03 16:47 | US ---
PROCEDURE: Pelvic ultrasound 07/03/2017 HISTORY: DUB x 1 mo, h/o same COMPARISON: Comparison made with CT scan abdomen pelvis 01/22/2017. TECHNIQUE: Transabdominal/transvaginal sonographic evaluation of pelvis performed. FINDINGS: Uterus is retroverted measuring approximately 6.2 x 3.0 x 3.5 cm. . Endometrial stripe measures 5.1 mm. Right ovary measures 3.3 x 2.2 x 3.1 cm and exhibits arterial flow. Left ovary measures approximately 3.5 x 2.7 x 3.2 cm and also exhibits arterial flow. IMPRESSION: No acute findings.
[2017-07-03 17:15] VITALS: BP 139/94; PULSE 82; RESP 18; TEMP 98.1; O2SAT 97
== END 2017-07-03 17:15 | disposition home or self-care (01) ==
LOC: C.ER 13:49
DX: N93.8 Other specified abnormal uterine and vaginal bleeding (principal)

== ENCOUNTER 2017-10-10 18:22 | Emergency (ER) | payer MEDICAID ==
[2017-10-10 18:22] VITALS: BMI 29.9
[2017-10-10 18:34] VITALS: BP 138/94; PULSE 108; TEMP 98.6; O2SAT 97
[2017-10-10 19:09] VITALS: RESP 20
--- NOTE | 2017-10-10 19:10 | C.PDOC ---
History Of Present Illness 27 y/o female presents to ED with c/o pain to right foot and bump between 4th and 5th metatarsal. Patient reports fracture on right foot 2 years ago and has scheduled surgery but states pain is persistent prompting visit to ED. Patient denies numbness or weakness. Time Seen by Provider: 10/10/17 18:44 Chief Complaint (Nursing): Lower Extremity Problem/Injury History Per: Patient History/Exam Limitations: no limitations Onset/Duration Of Symptoms: Days Current Symptoms Are (Timing): Still Present Past Medical History Reviewed: Historical Data, Nursing Documentation, Vital Signs Vital Signs: Last Vital Signs Temp 98.6 F 10/10/17 18:30 Pulse 108 H 10/10/17 18:30 Resp 20 10/10/17 19:08 BP 138/94 H 10/10/17 18:30 Pulse Ox 97 10/10/17 19:16 - Medical History PMH: Anemia, Bronchitis Surgical History: No Surg Hx Family History: States: No Known Family Hx - Social History Hx Alcohol Use: Yes Hx Substance Use: No - Immunization History Hx Tetanus Toxoid Vaccination: Yes Hx Influenza Vaccination: Yes Hx Pneumococcal Vaccination: Yes Review Of Systems Musculoskeletal: Positive for: Foot Pain Skin: Negative for: Rash, Bruising Neurological: Negative for: Weakness, Numbness Physical Exam - Physical Exam Appears: Non-toxic, No Acute Distress Skin: Warm, Dry, No Rash, No Ecchymosis Head: Atraumatic, Normacephalic Eye(s): bilateral: Normal Inspection Oral Mucosa: Moist Neck: Normal ROM Chest: Symmetrical Extremity: No Tenderness, Capillary Refill (<2 seconds), No Deformity, No Swelling, Other (mildly tender hyperkeratotic lesion to the lateral border 4th digit right foot) Pulses: Right Dorsalis Pedis: Normal Neurological/Psych: Oriented x3, Normal Speech, Normal Motor, Normal Sensation Gait: Steady ED Course And Treatment O2 Sat by Pulse Oximetry: 97 (RA) Pulse Ox Interpretation: Normal Medical Decision Making Medical Decision Making: Patient with old fracture ankle, no new injury and aching pain likely arthritic. Patient has callus to toedigit. Will prescribe medication to apply. Carlos bandage applied to ankle. Patient to follow up with podiatry. Disposition Counseled Patient/Family Regarding: Diagnosis, Need For Followup, Rx Given - Disposition Referrals: Podiatry Clinic [Outside] Disposition: HOME/ ROUTINE Disposition Time: 19:00 Condition: GOOD Additional Instructions: Follow up in podiatry clinic Prescriptions: Ibuprofen [Motrin] 600 mg PO Q8 #30 tab Salicylic Acid/Foot Cushion [Liquid [place] & Callus Remover] 15 ml TP DAILY #1 liquid Instructions: Ankle Sprain (DC) Forms: [employer] ([place]) - POA Present On Arrival: None - Clinical Impression Clinical Impression: Callus of foot, Ankle arthralgia - PA / NEWSPAPER DISTRIBUTOR SUPERVISOR / Resident Statement MD/DO has reviewed & agrees with the documentation as recorded. - Scribe Statement The provider has reviewed the documentation as recorded by the Linda Mcgarry All medical record entries made by the Linda were at my direction and personally dictated by me. I have reviewed the chart and agree that the record accurately reflects my personal performance of the history, physical exam, medical decision making, and the department course for this patient. I have also personally directed, reviewed, and agree with the discharge instructions and disposition.
== END 2017-10-10 19:08 | disposition home or self-care (01) ==
LOC: C.ER 18:22
DX: L84 Corns and callosities (principal); M25.571 Pain in right ankle and joints of right foot